=== PATIENT | female | born 1945 | race Two or more races ===

== ENCOUNTER 2018-02-01 14:29 | Emergency (ER) | payer BC, OTHER ==
[~2018-02-01] VITALS: Ht 152.4 cm; Wt 59.0 kg
[2018-02-01 15:16] LABS: Basophils # (auto) 0 uL; Eosinophils # (auto) 0.1 uL; Lymphocytes # (auto) 1.5 uL; Mean Corpuscular Hgb Conc. 32.6 g/dL (32.0-36.0); Mean Corpuscular Volume 103.4 fL (80.0-100.0); Monocytes # (auto) 0.3 uL; Neutrophils # (auto) 6.8 uL; Nucleated Red Blood Cells % 0.6 %; White Blood Cell 8.7 10^3/uL (4.4-10.8)
[2018-02-01 15:19] LABS: Basophils % (auto) 0.4 % (0.0-2.0); Eosinophils % (auto) 0.9 % (0.0-7.0); Hematocrit 35.1 % (36.0-46.0); Hemoglobin 11.4 g/dL (12.2-16.2); Lymphocytes % (auto) 17.3 % (10.0-50.0); Mean Corpuscular Hemoglobin 33.7 pg (28.0-32.0); Monocytes % (auto) 3.5 % (0.0-12.0); Neutrophils % (auto) 77.9 % (37.0-80.0); Platelet Count (auto) 392 10^3/uL (140-450); Red Cell Distribution Width 18.2 % (11.8-14.3)
[2018-02-01 15:30] LABS: Albumin 3.1 g/dL (3.4-5.0); Anion Gap 7 (5-15); Blood Urea Nitrogen 25 mg/dL (7-18); Carbon Dioxide 29 mmol/L (21-32); Chloride 102 mmol/L (98-107); Glucose 128 mg/dL (74-106); Sodium 138 mmol/L (136-145)
[2018-02-01 15:39] LABS: Alanine Aminotransferase 39 U/L (13-56); Alkaline Phosphatase 98 U/L (45-117); Aspartate Aminotransferase 25 U/L (15-37); BUN/Creatinine Ratio 16.9; Bilirubin, Total 0.4 mg/dL (0.2-1.0); GFR African American 44 mL/min; GFR Non-African American 37 mL/min; Total Protein 7.6 g/dL (6.4-8.2)
[2018-02-01 18:07] VITALS: BP 120/65
== END 2018-02-01 18:09 | disposition home or self-care (01) ==
LOC: ER 14:35
DX: D64.9 Anemia, unspecified (principal); N39.0 Urinary tract infection, site not specified; I10 Essential (primary) hypertension; M19.90 Unspecified osteoarthritis, unspecified site; Z88.6 Allergy status to analgesic agent; Z88.8 Allergy status to other drugs, medicaments and biological substances
CPT/HCPCS: 36415; 71046; 80053; 83880; 84484; 85025; 93005